=== PATIENT | female | born 1945 | race Caucasian/White ===

== ENCOUNTER → 2020-05-29 | Outpatient (CLI) | payer MEDICARE, BC | LOC: KOH-I 12:53 | DX: N20.0 Calculus of kidney (principal) | CPT/HCPCS: 74018 ==

== ENCOUNTER → 2020-08-02 | Outpatient (CLI) | payer MEDICARE, BC | LOC: HEART 5 14:36 | DX: R00.2 Palpitations (principal) ==

== ENCOUNTER → 2020-08-20 | Outpatient (CLI) | payer MEDICARE, BC | LOC: ECHO 12:11 | DX: I10 Essential (primary) hypertension (principal); R00.2 Palpitations | CPT/HCPCS: ECHO; 93306 ==

== ENCOUNTER → 2020-11-27 | Outpatient (CLI) | payer MEDICARE, BC | LOC: KOH-I 08:27 | DX: N20.0 Calculus of kidney (principal) | CPT/HCPCS: 74018 ==

== ENCOUNTER → 2021-04-10 | Outpatient (CLI) | payer MEDICARE, BC | LOC: KOH-I 15:55 | DX: M47.22 Other spondylosis with radiculopathy, cervical region (principal) | CPT/HCPCS: 72050 ==

== ENCOUNTER → 2021-05-03 | Outpatient (CLI) | payer MEDICARE, BC | LOC: KOH-I 04-26 10:45 | DX: M48.02 Spinal stenosis, cervical region (principal); M47.22 Other spondylosis with radiculopathy, cervical region; R29.2 Abnormal reflex | CPT/HCPCS: 72141 ==

== ENCOUNTER → 2021-11-20 | Outpatient (CLI) | payer MEDICARE, BC | LOC: KOH-I 11:55 | DX: N20.0 Calculus of kidney (principal); K59.00 Constipation, unspecified | CPT/HCPCS: 74018 ==